=== PATIENT | male | born 1945 | race Caucasian/White ===

== ENCOUNTER 2020-03-25 06:11 | Emergency (ER) | payer MEDICARE, OTHER ==
[2020-03-25] MEDS ORDERED: Sodium Chloride 0.9% 10 ML Syringe FLUSH PRN (06:20)
--- NOTE | 2020-03-25 06:38 | EDM.PDOC ---
<MehulSyd Norris - Last Filed: 03/25/20 07:25> ED HPI GENERAL MEDICAL PROBLEM - General Chief Complaint: Chest Pain Stated Complaint: DOESNT FEEL GOOD Time Seen by Provider: 03/25/20 06:25 - History of Present Illness INITIAL COMMENTS - FREE TEXT/NARRATIVE: I assumed care of the pt from Renetta Mitchell NP at 0700HR shift change with lab results just completed. Pt has persistently remained bradycardic with heart rate in the 40's with symptoms of feeling vaguely "not right" and generalized weakness. Denies any injury or falls. No recent medication changes. Hx of chronic A-fib with baseline heart rate in 60s - 70s per pt. 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 He has been in [place] for the past 2 weeks. Denies fever, chills, cough, chest pain, or any COVID exposures. Quality: Reports: Other (Denies pain) Severity: Severe Improves with: Reports: None Worsens with: Reports: Other (exertion) Associated Symptoms: Reports: No Other Symptoms - Related Data Allergies Allergy/AdvReac Type Severity Reaction Status Date / Time No Known Allergies Allergy Verified 03/25/20 06:18 Home Meds: Home Meds Bimatoprost [LUMIGAN 0.01% Ophth Soln] 1 drop EYEBOTH DAILY 03/25/20 [History] Brimonidine Tartrate/Timolol [Combigan 0.2%-0.5% Eye Drops] 1 drop EYEBOTH BID 03/25/20 [History] Brinzolamide [Azopt 1% Ophth Susp] 1 drop EYEBOTH BID 03/25/20 [History] Chlorthalidone 25 mg PO DAILY 03/25/20 [History] Eplerenone [Inspra] 25 mg PO DAILY 03/25/20 [History] Flecainide Acetate 150 mg PO BID 03/25/20 [History] Losartan [Cozaar] 100 mg PO DAILY 03/25/20 [History] Metoprolol Succinate [Toprol XL] 25 mg PO DAILY 03/25/20 [History] Netarsudil Mesylate [Rhopressa] 1 drop EYEBOTH DAILY 03/25/20 [History] Warfarin [Coumadin] 5 mg PO DAILY 03/25/20 [History] amLODIPine Besylate [Amlodipine Besylate] 10 mg PO DAILY 03/25/20 [History] Past Medical History Cardiovascular History: Reports: Afib Social & Family History - Family History Family Medical History: Noncontributory - Living Situation & Occupation Occupation: Retired ED EXAM, GENERAL - Physical Exam Free Text/Narrative:: No changes to exam as documented by the [facility] for this encounter. EKG INTERPRETATION EKG Date: 03/25/20 Time: 06:18 Rhythm: Other (Sinus joya) Rate (Beats/Min): 46 [place]: Normal P-Wave: Present QRS: Wide (nonspecific IVCB) ST-T: Normal QT: Normal LA/PQ Interval: 1st degree AVB Comparison: NA - No Prior EKG Course - Radiology Interpretation Free Text/Narrative:: [facility] Final Radiology Report Call: [phone] assistance Online chat: [email or web address] Project Name: GORDO WILSON Age: 74Years M Date: 03/25/2020 SSN: -- : [id number] Study: CR CHEST 1V FRONTAL Requesting Physician: Renetta Mitchell Images: 1 Addl Studies: Provided Clinical History: chest pain Contrast: Contrast Medium: Contrast Amount: Contrast Method: CONFIDENTIALITY STATEMENT This report is intended only for use by the referring physician, and only in accordance with law. If you received this in error, call [phone]. Page 1 of 1 PROCEDURE INFORMATION: Exam: XR Chest, 1 View Exam date and time: 03/25/2020 6:42 AM Age: 74 years old Clinical indication: Chest pain; Type not specified TECHNIQUE: Imaging protocol: XR of the chest Views: 1 view. COMPARISON: No relevant prior studies available. FINDINGS: Lungs: Unremarkable. No consolidation. Pleural space: Unremarkable. No pleural effusion. No pneumothorax. Heart/Mediastinum: Mild cardiomegaly. Bones/joints: Unremarkable. IMPRESSION: No acute findings. Thank you for allowing us to participate in the care of your patient. Dictated and Authenticated by: Norris Catherine MD 03/25/2020 6:49 AM Central Time ([place] & [place]) Departure - Departure Time of Disposition: 07:10 Disposition: DC/Tfer to Acute Hospital 02 Condition: Fair, Undetermined Clinical Impression: Bradycardia - Discharge Information *PRESCRIPTION DRUG MONITORING PROGRAM REVIEWED*: Not Applicable *COPY OF PRESCRIPTION DRUG MONITORING REPORT IN PATIENT DONNELL: Not Applicable Referrals: PCP,Not In Area [Primary Care Provider] - Forms: ED Department Discharge, Interfacility Transfer MARTIN <Renetta Mitchell - Last Filed: 03/28/20 14:12> ED HPI GENERAL MEDICAL PROBLEM - General Source of Information: Reports: Patient, RN, RN Notes Reviewed History Limitations: Reports: No Limitations - History of Present Illness INITIAL COMMENTS - FREE TEXT/NARRATIVE: Presents to ER with complaint of not feeling well. Patient states he left at 430 this morning from [place] and is heading back to [facility]. States he has been driving for a little over an hour and began not feeling well shortly after he began driving. Patient states he feels weak and tired out. Patient denies any chest pains, shortness of breath, nausea or vomiting, diarrhea, fever or chills. Denies dizziness, lightheadedness, double or blurred vision. Patient states he has a history of atrial fib. This was diagnosed in 2005, and had another episode in 2011. Patient takes metoprolol and flecainide. Patient states he has been outdoors and working quite a bit in the past week. Dates he feels he may be got overheated and dehydrated. Onset: Today, Sudden Duration: Constant Location: Reports: Generalized Past Medical History HEENT History: Reports: Cataract, Impaired Vision Cardiovascular History: Reports: Afib Gastrointestinal History: Reports: Bowel Obstruction - Infectious Disease History Infectious Disease History: Reports: Measles, Mumps - Past Surgical History GI Surgical History: Reports: Cholecystectomy Social & Family History - Tobacco Use Smoking Status *Q: Never Smoker Second Hand Smoke Exposure: No - Caffeine Use Caffeine Use: Reports: Coffee - Recreational Drug Use Recreational Drug Use: No ED ROS GENERAL - Review of Systems Review Of Systems: Comprehensive ROS is negative, except as noted in HPI. ED EXAM, GENERAL - Physical Exam Exam: See Below Exam Limited By: No Limitations General Appearance: Alert, WD/WN, No Apparent Distress Eye Exam: Bilateral Eye: EOMI, Normal Inspection Ears: Normal External Exam, Hearing Grossly Normal Nose: Normal Inspection Throat/Mouth: Normal Inspection, Normal Voice, No Airway Compromise Head: Atraumatic, Normocephalic Neck: Normal Inspection, Supple, Non-Tender, Full Range of Motion Respiratory/Chest: No Respiratory Distress, Lungs Clear, Normal Breath Sounds, No Accessory Muscle Use, Chest Non-Tender Cardiovascular: Normal Peripheral Pulses, Regular Rate, Rhythm, No Edema, No Gallop, No JVD, No Murmur, No Rub, Bradycardia Peripheral Pulses: 2+: Radial (L), Radial (R) GI/Abdominal: Normal Bowel Sounds, Soft, Non-Tender (Male) Exam: Deferred Rectal (Males) Exam: Deferred Back Exam: Normal Inspection, Full Range of Motion, NT Extremities: Normal Inspection, Normal Range of Motion, Non-Tender, Normal Capillary Refill, No Pedal Edema Neurological: Alert, Oriented, CN II-XII Intact, Normal Cognition, Normal Gait, Normal Reflexes, No Motor/Sensory Deficits Psychiatric: Normal Affect, Normal Mood Skin Exam: Warm, Dry, Intact, Normal Color, No Rash Lymphatic: No Adenopathy Course - Vital Signs Last Recorded V/S: Last Vital Signs Temp 97.6 F 03/25/20 06:14 Pulse 48 L 03/25/20 06:14 Resp 16 03/25/20 06:14 BP 135/57 L 03/25/20 06:14 Pulse Ox 99 03/25/20 06:14 - Orders/Labs/Meds Labs: Laboratory Tests 03/25/20 03/25/20 03/25/20 Range/Units 06:20 06:20 06:20 WBC 7.5 (5.0-10.0) 10^3/uL RBC 4.26 L (4.6-6.2) 10^6/uL Hgb 13.2 L (14.0-18.0) g/dL Hct 38.8 L (40.0-54.0) % MCV 91.1 (80-100) fL MCH 31.0 (27.0-34.0) pg MCHC 34.0 (33.0-35.0) g/dL Plt Count 251 (150-450) 10^3/uL Neut % (Auto) 52.4 (42.2-75.2) % Lymph % (Auto) 28.8 (20.5-50.1) % Harris % (Auto) 14.0 H (2-8) % Eos % (Auto) 4.5 H (1.0-3.0) % Baso % (Auto) 0.3 (0.0-1.0) % PT 27.4 H (9.0-12.0) SEC INR 2.9 H (0.9-1.2) Sodium 139 (136-145) mmol/L Potassium 3.6 (3.5-5.1) mmol/L Chloride 104 (98-107) mmol/L Carbon Dioxide 28 (21-32) mmol/L Anion Gap 10.6 (7-13) mEq/L BUN 28 H (7-18) mg/dL Creatinine 1.54 H (0.70-1.30) mg/dL Est Cr Clr Drug Dosing 46.12 mL/min Estimated GFR (MDRD) 44 BUN/Creatinine Ratio 18.2 (No establ ref range) Glucose 98 (74-99) mg/dL Calcium 9.1 (8.5-10.1) mg/dL Total Bilirubin 0.9 (0.2-1.0) mg/dL AST 27 (15-37) U/L ALT 40 (16-63) U/L Alkaline Phosphatase 59 (46-116) U/L Troponin I < 0.017 (0.000-0.056) ng/mL Total Protein 6.6 (6.4-8.2) g/dL Albumin 3.7 (3.4-5.0) g/dL Globulin 2.9 Albumin/Globulin Ratio 1.3 Meds: Medications Discontinued Medications Generic Name Dose Route Start Last Admin Trade Name Freq PRN Reason Stop Dose Admin Potassium Chloride 40 meq 03/25/20 07:22 03/25/20 07:36 Klor-Con 10 PO 03/25/20 07:23 40 meq ONETIME ONE Administration Sodium Chloride 10 ml 03/25/20 06:20 03/25/20 06:24 Saline Flush FLUSH 10 ml ASDIRECTED PRN Administration Keep Vein Open Sepsis Event Note (ED) - Evaluation Sepsis Screening Result: No Definite Risk
[2020-03-25 06:48] LABS: ANION GAP 10.6 mEq/L (7-13); CHLORIDE,CL 104 mmol/L (98-107); SODIUM,NA 139 mmol/L (136-145)
--- NOTE | 2020-03-25 06:50 | CR ---
PROCEDURE INFORMATION: Exam: XR Chest, 1 View Exam date and time: 03/25/2020 6:42 AM Age: 74 years old Clinical indication: Chest pain; Type not specified TECHNIQUE: Imaging protocol: XR of the chest Views: 1 view. COMPARISON: No relevant prior studies available. FINDINGS: Lungs: Unremarkable. No consolidation. Pleural space: Unremarkable. No pleural effusion. No pneumothorax. Heart/Mediastinum: Mild cardiomegaly. Bones/joints: Unremarkable. IMPRESSION: No acute findings.
[2020-03-25] MEDS ORDERED: Potassium Chloride 10 MEQ Tab.ER PO ONE (07:22)
== END 2020-03-25 07:45 ==
LOC: DL.ED 06:11
DX: R00.1 Bradycardia, unspecified (principal); I48.91 Unspecified atrial fibrillation; Z79.01 Long term (current) use of anticoagulants; Z79.899 Other long term (current) drug therapy
CPT/HCPCS: 36415; 71045; 80053; 84484; 85025; 85610; 93005; 99285-25; A9270-GY